=== PATIENT | female | born 1995 | race African-American/Black ===

== ENCOUNTER 2020-06-29 20:37 | Inpatient (IN) | payer BC ==
[2020-06-29 21:59] LABS: BASO % 0.3 % (0-2.0); EOS % 0.3 % (0-4.5); HEMATOCRIT 34.9 % (32.4-45.2); HEMOGLOBIN 11.5 GM/dL (10.7-15.3); LYMPH % 10.6 % (8-40); MCH 26.1 pg (25.7-33.7); MCHC 33.1 g/dl (32.0-36.0); MEAN PLT VOLUME 8.8 fl (7.5-11.1); MONO % 6.4 % (3.8-10.2); NEUT % 82.4 % (42.8-82.8); PLATELET COUNT 276 K/MM3 (134-434); RBC 4.41 M/mm3 (3.60-5.2); RDW 14.4 % (11.6-15.6); WHITE BLOOD COUNT 9.5 K/mm3 (4.0-10.0)
[2020-06-29 22:05] LABS: INR 0.94 (0.83-1.09); PROTHROMBIN TIME (PATIENT) 11.4 SEC (9.7-13.0)
[2020-06-29 22:08] LABS: ACTIVATED PTT 28.8 SECONDS (25.2-36.5)
[2020-06-29 22:25] LABS: POTASSIUM 3.7 mmol/L (3.5-5.1)
[2020-06-29 22:26] LABS: CALCIUM 8.9 mg/dL (8.5-10.1)
[2020-06-29 22:27] LABS: BLOOD UREA NITROGEN 6.9 mg/dL (7-18)
[2020-06-29 22:30] LABS: CREATININE 0.6 mg/dL (0.55-1.3)
[2020-06-29] MEDS ORDERED: PCA PUMP NR ONE (22:44)
[2020-06-29] MEDS ORDERED: FENTANYL/BUPIVACAINE/NS/PF - PCEA - 50 ML DISP.SYRIN EP ONE (22:44)
[2020-06-29 22:59] VITALS: BMI 43.0
[2020-06-29] MEDS ORDERED: ELECTROLYTE-148 SOLN 1,000 ML IV SCH (23:15)
[2020-06-30] MEDS ORDERED: FENTANYL/BUPIVACAINE/NS/PF - PCEA - 50 ML DISP.SYRIN EP SCH (00:15)
[2020-06-30] MEDS ORDERED: NALOXONE HCL 0.4 MG/ML VIAL IVPUSH PRN (00:15)
[2020-06-30] MEDS ORDERED: OXYTOCIN 30 UNITS in 0.9% NS 30 UNIT/500 ML INFUS.BAG IVPB SCH (00:45)
[2020-06-30] MEDS ORDERED: FENTANYL/BUPIVACAINE/NS/PF - PCEA - 50 ML DISP.SYRIN EP ONE ×2 (03:39→06:19)
[2020-06-30] MEDS ORDERED: PCA PUMP NR ONE (08:30)
[2020-06-30] MEDS ORDERED: morphine SULFATE/PF 0.5 MG/ML (2cc Syringe - QUVA) ONE (08:43)
[2020-06-30] MEDS ORDERED: ceFAZolin SODIUM 1 GM VIAL ONE (08:44)
[2020-06-30] MEDS ORDERED: OXYTOCIN 10 UNITS/ML VIAL ONE (08:44)
[2020-06-30] MEDS ORDERED: KETOROLAC TROMETHAMINE 30 MG/1 ML VIAL ONE (08:44)
[2020-06-30] MEDS ORDERED: PHENYLEPHRINE HCL 10 MG/1 ML SINGLE DOSE VIAL ONE (08:44)
[2020-06-30] MEDS ORDERED: LIDOCAINE HCL/PF 2% SDV 5ML VIAL ONE (09:48)
[2020-06-30] MEDS ORDERED: CITRIC ACID/SODIUM CITRATE 30 ML UNIT-DOSE CUP PO ONE (10:16)
[2020-06-30] MEDS ORDERED: METHYLERGONOVINE MALEATE 0.2 MG/1 ML AMP IM PRN (10:17)
[2020-06-30] MEDS ORDERED: IBUPROFEN 600 MG TABLET (FP) PO PRN (10:17)
[2020-06-30 10:22] LABS: CORD HCO3 22.5 mmHg (20-29); CORD PCO2 57.6 mmHg (30-78)
[2020-06-30 10:26] LABS: CORD HCO3 22.2 mmHg (20-29); CORD PCO2 48.3 mmHg (30-78)
[2020-06-30] MEDS ORDERED: ACETAMINOPHEN 325 MG TABLET (FP) PO PRN (10:26)
[2020-06-30] MEDS ORDERED: oxyCODONE HCL 5 MG TABLET PO PRN (10:26)
[2020-06-30] MEDS ORDERED: OXYTOCIN 20 UNITS in 0.9% NS 20 UNIT/1,000 ML INFUS.BAG IV SCH (10:30)
[2020-06-30] MEDS ORDERED: KETOROLAC TROMETHAMINE 30 MG/1 ML VIAL IVPUSH PRN (12:06)
[2020-06-30] MEDS ORDERED: PCA PUMP KEY 1 EACH EACH ONE (16:16)
[2020-06-30] MEDS: HYDROmorphone *PCA* 10MG/50ML DISP.SYRIN PCA SCH (16:17)
[2020-06-30] MEDS: CEFAZOLIN 1 GM/D5W 1 GM/50 ML BAG IVPB SCH (17:23)
[2020-07-01] MEDS: CEFAZOLIN 1 GM/D5W 1 GM/50 ML BAG IVPB SCH ×2 (01:59→10:29)
[2020-07-01 09:31] LABS: BASO % 0.1 % (0-2.0); EOS % 1.3 % (0-4.5); HEMATOCRIT 26.9 % (32.4-45.2); HEMOGLOBIN 8.9 GM/dL (10.7-15.3); MCH 26.6 pg (25.7-33.7); MEAN CELL VOLUME 80.7 fl (80-96); MEAN PLT VOLUME 8.8 fl (7.5-11.1); MONO % 5.2 % (3.8-10.2); NEUT % 87.4 % (42.8-82.8); PLATELET COUNT 220 K/MM3 (134-434); RBC 3.34 M/mm3 (3.60-5.2); RDW 14.9 % (11.6-15.6); WHITE BLOOD COUNT 9.5 K/mm3 (4.0-10.0)
[2020-07-01] MEDS ORDERED: DIPHTH,PERTUSS(ACELL),TET 0.5 ML DISP.SYRIN IM ONE (10:00)
[2020-07-01] MEDS ORDERED: BISACODYL 10 MG SUPP.RECT RC PRN (10:17)
[2020-07-01] MEDS: PRENATAL VITAMINS W/ FOLIC ACID TABLET (FP) PO SCH (10:56)
[2020-07-01] MEDS: DOCUSATE SODIUM 100 MG CAPSULE (FP) PO SCH (10:56)
[2020-07-01] MEDS ORDERED: PCA PUMP KEY 1 EACH EACH ONE (14:13)
[2020-07-01] MEDS: HYDROmorphone *PCA* 10MG/50ML DISP.SYRIN PCA SCH (14:43)
[2020-07-01] MEDS ORDERED: IBUPROFEN 100 MG/5 ML UNIT DOSE CUPS PO PRN (15:16)
[2020-07-01] MEDS: SIMETHICONE 80 MG TAB.CHEW (FP) PO PRN (15:29)
[2020-07-01 22:40] VITALS: TEMP 98.3
[2020-07-02] MEDS: ACETAMINOPHEN 650 MG/20.3 ML ORAL SOLUTION (CUPS) PO PRN ×2 (01:38→09:32)
[2020-07-02] MEDS ORDERED: IBUPROFEN 100 MG/5 ML UNIT DOSE CUPS PO PRN (09:29)
[2020-07-02] MEDS: SIMETHICONE 80 MG TAB.CHEW (FP) PO PRN (09:36)
[2020-07-02] MEDS: PRENATAL VITAMINS W/ FOLIC ACID TABLET (FP) PO SCH (09:54)
[2020-07-02] MEDS: DOCUSATE SODIUM 100 MG CAPSULE (FP) PO SCH (09:54)
[2020-07-02] MEDS ORDERED: FERROUS SO4 325 MG TABLET (FP) PO SCH (10:00)
[2020-07-02 10:19] VITALS: BP 105/69; PULSE 110
== END 2020-07-02 15:30 | disposition home or self-care (01) | DRG 788 ==
LOC: JDEL 20:37 → JLDR 20:40 → J3W 06-30 11:40
PROVIDERS: ADMIT Obstetrics & Gynecology; ATTEND Obstetrics & Gynecology
PROC: 10D00Z1 Extraction of Products of Conception, Low, Open Approach (ICD-10-PCS; principal; 2020-06-30)
PROC: 10907ZC Drainage of Amniotic Fluid, Therapeutic from Products of Conception, Via Natural or Artificial Opening (ICD-10-PCS; 2020-06-30)
DX: O76 Abnormality in fetal heart rate and rhythm complicating labor and delivery (principal); O48.0 Post-term pregnancy; Z3A.40 40 weeks gestation of pregnancy; Z37.0 Single live birth
CPT/HCPCS: 36415; 36600; 80048; 82803; 85025; 85610; 85730; 86780; 86850; 86900; 86901; 88307-TC; C9803; U0003